=== PATIENT | male | born 1980 | race Caucasian/White ===

== ENCOUNTER 2021-04-08 19:53 | Emergency (ER) | payer MEDICAID ==
[~2021-04-08] VITALS: Ht 177.8 cm; Wt 116.0 kg
[~2021-04-08 19:53] MED LIST: ESCI20TA39 PO
[2021-04-08 20:09] VITALS: BP 174/99
[2021-04-08] MEDS ORDERED: TETanus/Pertussis (Acell)/Diphther VAC/PF (Tdap-Adult) 0.5ml syringe IMVAC ONE (21:40)
[2021-04-08] MEDS ORDERED: AMOX-422 PO (22:10)
== END 2021-04-08 22:24 | disposition home or self-care (01) ==
LOC: ER 19:54
DX: S61.432A Puncture wound without foreign body of left hand, initial encounter (principal); M79.642 Pain in left hand; Z79.2 Long term (current) use of antibiotics; Z79.899 Other long term (current) drug therapy; X58.XXXA Exposure to other specified factors, initial encounter; Y93.89 Activity, other specified; Y92.89 Other specified places as the place of occurrence of the external cause; Y99.8 Other external cause status
CPT/HCPCS: 73130; 90471; 90715; 99283